=== PATIENT | male | born 1995 | race African-American/Black ===

== ENCOUNTER 2019-09-29 17:52 | Emergency (ER) | payer MEDICAID ==
[~2019-09-29] VITALS: Ht 185.4 cm; Wt 74.8 kg
[2019-09-29 17:57] VITALS: BP 122/65
[2019-09-29] MEDS ORDERED: KETOROLAC TROMETHAMINE 15 MG/ML VIAL ONE (19:13)
[2019-09-29] MEDS ORDERED: LORAZEPAM 0.5 MG TABLET ONE (19:14)
[2019-09-29] MEDS ORDERED: HYDROCODONE/APAP 5/325MG 1 EACH TABLET ONE (19:14)
[2019-09-29] MEDS: LORAZEPAM 1 MG TABLET PO ONE (19:21)
[2019-09-29] MEDS: HYDROCODONE/APAP 5/325MG 1 EACH TABLET PO ONE (19:21)
[2019-09-29] MEDS: KETOROLAC TROMETHAMINE INJ 30 MG/ML VIAL IM ONE (19:22)
== END 2019-09-29 19:38 | disposition home or self-care (01) ==
LOC: ER 17:55
DX: M54.9 Dorsalgia, unspecified (principal); M79.18 Myalgia, other site; V49.49XA Driver injured in collision with other motor vehicles in traffic accident, initial encounter; Y93.89 Activity, other specified; Y92.488 Other paved roadways as the place of occurrence of the external cause; Y99.8 Other external cause status
CPT/HCPCS: 96372; 99283; J1885